=== PATIENT | female | born 2005 | race African-American/Black ===

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

== ENCOUNTER 2024-09-26 15:44 | Outpatient (CLI) | payer OTHER | END 2024-09-26 15:45 | disposition home or self-care (01) | LOC: ULT 15:44 | PROVIDERS: ATTEND Family Medicine | DX: L68.0 Hirsutism (principal) | CPT/HCPCS: 76856 ==